=== PATIENT | female | born 1950 | race Caucasian/White ===

== ENCOUNTER 2020-09-30 13:30 | Outpatient (REF) | payer MEDICARE, SELFPAY ==
[2020-09-30 16:30] LABS: Hematocrit 29.2 % (37-47); Hemoglobin 7.6 g/dl (12.0-16.0); Mean Corpuscular Hemoglobin 16.9 pg (27.0-33.0); Red Blood Count 4.49 X10*6/uL (4.20-5.50); Red Cell Distribution Width 21.9 % (11.0-16.0)
[2020-09-30 16:31] LABS: PLT ABN DIST 1
[2020-09-30 16:49] LABS: Platelet Count 227 X10*3/uL (160-400); White Blood Count 7.2 X10*3/uL (4.8-10.8)
[2020-09-30 16:52] LABS: Alanine Aminotransferase 11 U/L (0-31); Albumin Level 4.5 g/dL (3.5-5.0); Alkaline Phosphatase 58 U/L (39-117); Anion Gap 12 (12-20); Aspartate Amino Transferase 18 U/L (5-31); Bilirubin Total 0.4 mg/dL (0.0-1.0); Blood Urea Nitrogen 19 mg/dL (9-16); Calcium 9.2 mg/dL (8.4-10.2); Carbon Dioxide 28 mmol/L (22-29); Chloride 106 mmol/L (96-108); Cholesterol 294 mg/dL; Estimated Glomerular Filt Rate > 60; Glucose Fasting 82 mg/dL (60-99); HDL Cholesterol 44 mg/dL; Iron 24 mcg/dL (30-160); LDL Cholesterol Calculated 191 mg/dl; Percent Iron Saturation 6 % (15-50); Potassium 3.9 mmol/L (3.3-5.1); Sodium 142 mmol/L (135-145); Total Iron Binding Capacity 436 mcg/dL (228-428); Total Protein 7.2 g/dL (6.5-8.0); Triglycerides 298 mg/dL; Unsaturated Iron Binding 412 ug/dL
[2020-09-30 17:15] LABS: Vitamin D 25-OH Total 12.4 ng/mL (>30)
== END 2020-09-30 13:31 | disposition home or self-care (01) ==
LOC: HO.HMGCLDS 13:30
PROVIDERS: PCP Internal Medicine; Visit Provider Internal Medicine
DX: E55.9 Vitamin D deficiency, unspecified (principal); I10 Essential (primary) hypertension; E78.5 Hyperlipidemia, unspecified; D50.9 Iron deficiency anemia, unspecified
CPT/HCPCS: 36415; 80053; 80061; 82306; 83540; 84443; 85027

== ENCOUNTER 2021-10-23 12:09 | Outpatient (REF) | payer MEDICARE, SELFPAY ==
[2021-10-23 13:58] LABS: MANUAL DIFF FLAG NO
[2021-10-23 14:24] LABS: Basophils Percent Auto 0.4 % (0-2); Eosinophils Absolute Auto 0.3 X10*3/uL (0.0-0.4); Eosinophils Percent Auto 3.3 % (0-4); Hematocrit 45.1 % (37.0-47.0); Hemoglobin 15.2 g/dl (12.0-16.0); Imm Gran Abs Auto 0.04 X10*3/uL (0.00-0.03); Imm Gran Pct Auto 0.5 % (0.0-0.4); Lymphocytes Absolute Auto 1.6 X10*3/uL (1.2-4.9); Lymphocytes Percent Auto 19.1 % (20-40); Mean Corpuscular HGB Conc 33.7 g/dl (31.0-35.0); Mean Corpuscular Hemoglobin 29.8 pg (27.0-33.0); Mean Corpuscular Volume 88.4 fL (80.0-98.0); Mean Platelet Volume 10.2 fL (9.4-12.3); Monocytes Absolute Auto 0.4 X10*3/uL (0.1-1.2); Monocytes Percent Auto 5.3 % (2-11); Neutrophils Absolute Auto 5.9 x10*3/uL (2.0-8.3); Neutrophils Percent Auto 71.4 % (45-73); Platelet Count 218 X10*3/uL (160-400); Red Cell Distribution Width 13.5 % (11.0-16.0); White Blood Count 8.2 X10*3/uL (4.8-10.8)
[2021-10-23 14:40] LABS: Alanine Aminotransferase 19 U/L (0-31); Albumin Level 4.6 g/dL (3.5-5.0); Alkaline Phosphatase 55 U/L (39-117); Anion Gap 12 (12-20); Aspartate Amino Transferase 25 U/L (5-31); Bilirubin Total 0.6 mg/dL (0.0-1.0); Blood Urea Nitrogen 15 mg/dL (9-16); Calcium 9.5 mg/dL (8.4-10.2); Carbon Dioxide 30 mmol/L (22-29); Chloride 104 mmol/L (96-108); Cholesterol 393 mg/dL; Estimated Glomerular Filt Rate > 60; Glucose Fasting 102 mg/dL (60-99); HDL Cholesterol 46 mg/dL; Iron 89 mcg/dL (30-160); LDL Cholesterol Calculated 307 mg/dl; Percent Iron Saturation 25 % (15-50); Sodium 142 mmol/L (135-145); Total Iron Binding Capacity 361 mcg/dL (228-428); Total Protein 7.4 g/dL (6.5-8.0); Triglycerides 200 mg/dL; Unsaturated Iron Binding 272 ug/dL
[2021-10-23 14:47] LABS: TSH reflex Free T4 2.18 uIU/mL (0.32-4.0)
== END 2021-10-23 12:10 | disposition home or self-care (01) ==
LOC: HO.HMGCLDS 12:09
PROVIDERS: Visit Provider Internal Medicine
DX: E55.9 Vitamin D deficiency, unspecified (principal); E78.5 Hyperlipidemia, unspecified; I10 Essential (primary) hypertension; D50.9 Iron deficiency anemia, unspecified
CPT/HCPCS: 36415; 80053; 80061; 83540; 84443; 85025

== ENCOUNTER 2022-05-04 11:20 | Outpatient (REF) | payer MEDICARE, SELFPAY ==
[2022-05-04 14:21] LABS: MANUAL DIFF FLAG NO
[2022-05-04 14:22] LABS: Basophils Percent Auto 0.3 % (0-2); Eosinophils Absolute Auto 0.2 X10*3/uL (0.0-0.4); Eosinophils Percent Auto 3.1 % (0-4); Hematocrit 43.1 % (37.0-47.0); Hemoglobin 14.7 g/dl (12.0-16.0); Imm Gran Abs Auto 0.03 X10*3/uL (0.00-0.03); Imm Gran Pct Auto 0.5 % (0.0-0.4); Lymphocytes Percent Auto 16.9 % (20-40); Mean Corpuscular HGB Conc 34.1 g/dl (31.0-35.0); Mean Corpuscular Hemoglobin 29.9 pg (27.0-33.0); Mean Corpuscular Volume 87.6 fL (80.0-98.0); Mean Platelet Volume 10.5 fL (9.4-12.3); Monocytes Absolute Auto 0.3 X10*3/uL (0.1-1.2); Monocytes Percent Auto 5.3 % (2-11); Neutrophils Absolute Auto 4.5 x10*3/uL (2.0-8.3); Neutrophils Percent Auto 73.9 % (45-73); Platelet Count 170 X10*3/uL (160-400); Red Blood Count 4.92 X10*6/uL (4.20-5.50); White Blood Count 6.1 X10*3/uL (4.8-10.8)
[2022-05-04 15:29] LABS: Alanine Aminotransferase 28 U/L (0-31); Albumin Level 4.4 g/dL (3.5-5.0); Alkaline Phosphatase 48 U/L (39-117); Anion Gap 15 (12-20); Aspartate Amino Transferase 56 U/L (5-31); Bilirubin Total 0.6 mg/dL (0.0-1.0); Blood Urea Nitrogen 20 mg/dL (9-16); Calcium 9.9 mg/dL (8.4-10.2); Carbon Dioxide 28 mmol/L (22-29); Chloride 102 mmol/L (96-108); Cholesterol 184 mg/dL; Estimated Glomerular Filt Rate > 60; Glucose Fasting 86 mg/dL (60-99); HDL Cholesterol 47 mg/dL; Iron 94 mcg/dL (30-160); LDL Cholesterol Calculated 108 mg/dl; Percent Iron Saturation 32 % (15-50); Potassium 4.3 mmol/L (3.3-5.1); Sodium 141 mmol/L (135-145); TSH reflex Free T4 2.12 uIU/mL (0.32-4.0); Total Iron Binding Capacity 298 mcg/dL (228-428); Total Protein 6.8 g/dL (6.5-8.0); Triglycerides 148 mg/dL; Unsaturated Iron Binding 204 ug/dL
== END 2022-05-04 11:21 | disposition home or self-care (01) ==
LOC: HO.HMGCLDS 11:20
PROVIDERS: PCP Internal Medicine; Visit Provider Internal Medicine
DX: D50.9 Iron deficiency anemia, unspecified (principal); I10 Essential (primary) hypertension; E78.5 Hyperlipidemia, unspecified
CPT/HCPCS: 36415; 80053; 80061; 83540; 84443; 85025

== ENCOUNTER 2023-12-20 09:27 | Outpatient (AMB) | payer MEDICARE, SELFPAY ==
[2023-12-20 09:37] VITALS: BP 124/78; PULSE 62; O2SAT 97; BMI 29.3
--- NOTE | 2023-12-20 09:39 | AM.OFFVISMDC ---
Intake Vital Signs 12/20/23 09:37 Height 5 ft 4 in Weight 171 lb BMI 29.3 BP 124/78 Blood Pressure Location Lt brachial Position Sitting Pulse 62 Pulse Source Pulse Oximeter Pulse Oximetry (%) 97 Oxygen Delivery Method Room Air Intake Visit Reasons: AWV Allergies Sulfa (Sulfonamide Antibiotics) Allergy (Unknown, Verified 12/20/23 09:39) Rash Medication List - Last Reconciled 12/20/23 by Jennifer Rodriguez MD atenolol-chlorthalidone 50-25 mg 1 tab PO DAILY clonazepam 0.5 mg PO DAILY cyclosporine 0.05% drps ophthalmic (eye) gabapentin 600 mg PO BID naproxen 500 mg PO BID PRN omeprazole 40 mg (2 x 20 mg) PO DAILY polysaccharide iron complex 150 mg PO DAILY rosuvastatin 20 mg PO BEDTIME sertraline 150 mg (1.5 x 100 mg) PO DAILY HPI AWV HPI Details Initiated the conversation about Advanced Directives. Advanced Directives help? patients prepare for current and future decisions about their medical treatment? and place of care. Discussed with patient that it is a process where a patients? current condition and prognosis are reviewed, their wishes for information? regarding their illness are elicited, and likely medical dilemmas are presented? and options discussed. The form can be amended as needed, reviewed yearly and? make changes as needed IPPE/AWV ? year old presents? for her ? Annual? Wellness Visit, initial visit.? Medical / Social History Reviewed? Past Medical History ?Yes? . ? [employer]? of Care / Care Team list updated ?Yes . ? Surgical/Hospitalization? History ?Yes . ? Current Medications? (including OTC and supplements) ?Yes . ? Family History ?Yes? . ? Tobacco? Control form ?Yes . ? AUDIT-C (Alcohol use) form? ?Yes . ? Illicit drug use in Social? History ?Yes . ? Current diagnosis of? depression? ?No ? Appropriate PHQ2/PHQ9? completed ?Yes . ? Data entered by ?Medical? Outboard Motor Assembler and reviewed by provider ? Fall Risk ? Fall? History? Have you had any falls with? injury in the past year? ?No . ? Have you had two or more? falls in the past year? ?No . ? Fall Risk Assessment: ?No? falls in the past year . ? HRA filled out by? the patient, reviewed by Provider and scanned. ? IPPE/AWV ? Balance? Romberg? ?Yes . ? Tandem? walk ?Yes . ? Walk and? Turn ?Yes . ? Rise from? sit to stand ?Yes . ?Vision? Corrective? lens ?Yes ? Vision? screen ? Up-to-date, has an appointment [] for vision? screening and glaucoma screening ?Hearing? Whisper? test ?pass .? Initiated the conversation about Advanced Directives. Advanced Directives help? patients prepare for current and future decisions about their medical treatment? and place of care. Discussed with patient that it is a process where a patients? current condition and prognosis are reviewed, their wishes for information? regarding their illness are elicited, and likely medical dilemmas are presented? and options discussed. The form can be amended as needed, reviewed yearly and? make changes as needed Written? Plan?Completed. See Patient? Documents. [facility] [place] Medical History (Updated 12/20/23 @ 10:19 by Jennifer Rodriguez MD) Vision loss of right eye Vitamin D deficiency Iron deficiency anemia Anxiety and depression Hyperlipidemia HTN (hypertension) Surgical History H/O colonoscopy History of esophagogastroduodenoscopy (EGD) Family History Father No problems noted. Mother No problems noted. Other Mental health disorder Substance use disorder Social History Housing: House Alcohol intake: current Alcohol intake frequency: does not drink Patient Tobacco Use Status: Never used Tobacco e-Cigarette/Vaping Use: Never Used Second Hand Smoke Exposure: No service: No Current occupational status: retired Cognitive needs: No Hearing needs: Yes Vision needs: Yes Questionnaire Medicare Wellness Checkup [age] What gender do you identify with?: female During the past 4 weeks, how much have you been bothered by emotional problems such as feeling anxious, depressed, irritable, sad or downhearted, and blue?: not at all During the past 4 weeks, has your physical & emotional health limited your social activities with family, friends, neighbors, or groups?: not at all During the past 4 weeks, how much bodily pain have you generally had?: moderate pain During the past 4 weeks, was someone available to help you if you needed & wanted help?: no, not at all During the past 4 weeks, what was the hardest physical activity you could do for at least 2 minutes?: very light Can you get to places out of walking distance without help? (For eg., can you travel alone on buses, taxis or drive your car?): Yes Can you go shopping for groceries or clothes without someone's help?: Yes Can you prepare your own meals?: Yes Can you do your housework without help?: Yes Because of any health problems, do you need the help of another person with your personal care needs such as eating, bathing, dressing or getting around the house?: No Can you handle your own money without help?: Yes During the past 4 weeks, how would you rate your health in general?: very good During the past 4 weeks how have things been going for you?: very well; could hardly better Are you having difficulties driving your car?: no Do you always fasten your seat belt when you are in a car?: yes, usually During past 4 weeks, have you been bothered by the following: never: Falling or dizzy when standing up, Sexual problems?, Trouble eating well?, Problems using the telephone? and Tiredness or fatigue? and sometimes: Teeth or denture problems? Have you fallen 2 or more times in the past year?: No Are you afraid of falling?: Yes Are you a smoker?: no During the past 4 weeks, how many drinks of wine, beer, or other alcoholic beverages did you have?: 1 drink or less per week Do you exercise for about 20 minutes 3 or more times a week?: yes, most of the time Have you been given information to help with the following?: no: Hazards in your house that might hurt you? and no: Keeping track of your medications? How often do you have trouble taking medicines the way you have been told to take them?: I always take medicine as prescribed How confident are you that you can control & manage most of your health problems?: very confident What is your race?: White Mini Mental State Exam (MMSE) Orientation What is the (year) (season) (date) (day) (month)?: year, season, date, day and month Where are we (state) (county) (town or city) (hospital) (floor)?: state, county, town or city, hospital/clinic and floor Registration Name of 3 unrelated objects clearly and slowly, then ask patient to repeat all 3 of them. (1st repeat determines score. Make sure they can repeat all three): object 1, object 2 and object 3 Attention & Calculation (CHOOSE ONE) Spell WORLD backwards (DLROW): 5 letters Recall Ask patient to repeat the 3 items from question #3.: object 1, object 2 and object 3 Language Show patient a wristwatch & ask what it is. Repeat for pencil.: watch and pencil Ask the patient to repeat the phrase 'No ifs, ands, or buts' after you.: correct Ask the patient to 'take a piece of paper with their right hand' 'fold paper in half' 'place paper on floor': take paper in right hand, fold paper in half and place paper on floor Print the sentence 'CLOSE YOUR EYES' on a piece. If patient actually closes eyes then score.: followed written direction Give patient a blank piece of paper & ask to write a sentence. Score if it contains a noun & verb.: sentence contains subject and verb Score Score: 29 Activity of Daily Living Bathing - sponge bath, tub bath or shower: receives no assistance (gets in/out by self, if usual bathing means Dressing - getting clothes from closets & drawers, including inner/outer garments & fasteners.: gets clothes & gets completely dressed without help Toileting - going to the 'toilet room' for urine/bowel elimination & cleaning self/arranging clothes: goes to toilet room, cleans self, arranges clothes without help Transfer: moves in & out of bed and chair without help (may use support object) Continence: controls urination/bowel movements completely by self Feeding: feeds self without help Total Score: 0 Information obtained from: patient Using telephone: independent Traveling: independent Shopping: independent Preparing meals: independent Housework: independent Taking medicine: independent Managing money: independent PHQ-9 Over the last 2 weeks, how often have you been bothered by any of the following problems? 1. Little interest or pleasure in doing things: not at all 2. Feeling down, depressed, or hopeless: not at all 3. Trouble falling or staying asleep, or sleeping too much: not at all 4. Feeling tired or having little energy: not at all 5. Poor appetite or overeating: not at all 6. Feeling bad about yourself - or that you are a failure or have let yourself or your family down: not at all 7. Trouble concentrating on things, such as reading the newspaper or watching television: not at all 8. Moving or speaking so slowly that other people could have noticed. Or the opposite - being so fidgety or restless that you have been moving around a lot more than usual: not at all 9. Thoughts that you would be better off or of hurting yourself in some way: not at all Total score: 0 Depression Screening Interpretation: Negative Depression Screening Done: Yes [id number] - PHQ-9 Billing: Yes Source: Developed by Drs. Db Cabello, Yasemin Gregory, Ulysses James and colleagues, with an educational david from [employer]. Review of Systems Const All systems reviewed & are unremarkable except as noted in HPI and below Eyes Reports no additional complaints ENT Reports no additional complaints Card Reports no additional complaints Resp Reports no additional complaints GI Reports no additional complaints Reports no additional complaints Musc Reports no additional complaints Physical Exam Vital Signs: Last Vital Signs Pulse 62 12/20/23 09:37 BP 124/78 12/20/23 09:37 Pulse Ox 97 12/20/23 09:37 Oxygen Delivery Method Room Air 12/20/23 09:37 BMI result Body Mass Index 29.3 Const General: no acute distress HEENT Head: Yes normal to inspection Eyes General: appearance normal, both eyes and all related structures Neck Neck: Yes no lymphadenopathy and Yes supple Resp Effort & Inspection: normal respiratory effort Auscultation: clear to auscultation bilaterally Cardio Rhythm: regular rhythm Heart sounds: S1 normal heart sound present and S2 normal heart sound present GI Inspection: Yes normal to inspection Palpation (GI): Soft to palpation Percussion: Yes normal to percussion Auscultation: normal bowel sounds Extrem General: Yes no clubbing, cyanosis or edema Assessment & Plan Assessment & Plan (1) HTN (hypertension): Comment: BP goal less than 130/80 Code(s): I10 - Essential (primary) hypertension Plan: cont meds (2) Hyperlipidemia: Comment: On Crestor Code(s): E78.5 - Hyperlipidemia, unspecified Plan: cont statin (3) Iron deficiency anemia: Comment: Chronic iron supplement, GI workup negative 2015 Code(s): D50.9 - Iron deficiency anemia, unspecified Plan: check iron (4) Vitamin D deficiency: Code(s): E55.9 - Vitamin D deficiency, unspecified Plan: check vit D (5) Anxiety and depression: Code(s): F41.9 - Anxiety disorder, unspecified; F32.9 - Major depressive disorder, single episode, unspecified Plan: cont meds (6) Annual physical exam: Code(s): Z00.00 - Encounter for general adult medical examination without abnormal findings Plan: Well-balanced diet regular physical activity discussed with the patient she will have a fasting blood work today. Patient declined mammogram and colonoscopy Orders: Orders Comprehensive Randolph. Panel Fast Today D50.9 - Iron deficiency anemia, unspecified, E55.9 - Vitamin D deficiency, unspecified, E78.5 - Hyperlipidemia, unspecified, I10 - Essential (primary) hypertension Complete Blood Count Auto Diff Today D50.9 - Iron deficiency anemia, unspecified, E55.9 - Vitamin D deficiency, unspecified, E78.5 - Hyperlipidemia, unspecified, I10 - Essential (primary) hypertension Lipid Panel Today D50.9 - Iron deficiency anemia, unspecified, E55.9 - Vitamin D deficiency, unspecified, E78.5 - Hyperlipidemia, unspecified, I10 - Essential (primary) hypertension TSH reflex Free T4 Today D50.9 - Iron deficiency anemia, unspecified, E55.9 - Vitamin D deficiency, unspecified, E78.5 - Hyperlipidemia, unspecified, I10 - Essential (primary) hypertension IRON PROFILE Today D50.9 - Iron deficiency anemia, unspecified, E55.9 - Vitamin D deficiency, unspecified, E78.5 - Hyperlipidemia, unspecified, I10 - Essential (primary) hypertension Vitamin D 25-OH Total Today D50.9 - Iron deficiency anemia, unspecified, E55.9 - Vitamin D deficiency, unspecified, E78.5 - Hyperlipidemia, unspecified, I10 - Essential (primary) hypertension Medications: Changed From atenolol-chlorthalidone 50-25 mg 1 tab PO DAILY 90 tabs 3RF To atenolol-chlorthalidone 50-25 mg 1/2 orally daily; 90 tabs 3RF Refilled gabapentin 600 mg PO BID 180 tabs 3RF rosuvastatin 20 mg PO BEDTIME 90 tabs 3RF Quality Reporting (2019) Depression/Bipolar (159/160/161/177) PHQ-9: Total score: 0 Coding Level of Care Code Medicare Subsequent (G0439) Diagnoses HTN (hypertension) I10 Hyperlipidemia E78.5 Iron deficiency anemia D50.9 Vitamin D deficiency E55.9 Anxiety and depression F41.9; F32.9 Annual physical exam Z00.00 CPT Codes Advance Care Planning - Time spent: 1-15 minutes, on File ([id number]) Advance Care Planning Advance Care Planning discussion: Exists, not on file Forms completed: Health Care Proxy Time spent: 1-15 minutes, on File Did not discuss due to Cultural/Spiritual beliefs: Yes
== END 2023-12-20 10:22 | disposition home or self-care (01) ==
PROVIDERS: PCP Internal Medicine; Visit Provider Internal Medicine
DX: Z00.00 Encounter for general adult medical examination without abnormal findings (principal); I10 Essential (primary) hypertension; E78.5 Hyperlipidemia, unspecified; D50.9 Iron deficiency anemia, unspecified; E55.9 Vitamin D deficiency, unspecified; F41.9 Anxiety disorder, unspecified; F32.9 Major depressive disorder, single episode, unspecified
CPT/HCPCS: 1123F; G0439

== ENCOUNTER 2023-12-20 10:14 | Outpatient (REF) | payer MEDICARE, SELFPAY ==
[2023-12-20 13:09] LABS: MANUAL DIFF FLAG NO
[2023-12-20 13:19] LABS: Basophils Percent Auto 0.3 % (0-2); Eosinophils Absolute Auto 0.2 X10*3/uL (0.0-0.4); Eosinophils Percent Auto 3.2 % (0-4); Hematocrit 44.7 % (37.0-47.0); Hemoglobin 14.8 g/dl (12.0-16.0); Imm Gran Abs Auto 0.03 X10*3/uL (0.00-0.03); Imm Gran Pct Auto 0.4 % (0.0-0.4); Lymphocytes Absolute Auto 1.3 X10*3/uL (1.2-4.9); Lymphocytes Percent Auto 18.9 % (20-40); Mean Corpuscular HGB Conc 33.1 g/dl (31.0-35.0); Mean Corpuscular Hemoglobin 29.6 pg (27.0-33.0); Mean Corpuscular Volume 89.4 fL (80.0-98.0); Mean Platelet Volume 10.2 fL (9.4-12.3); Monocytes Absolute Auto 0.4 X10*3/uL (0.1-1.2); Monocytes Percent Auto 5.4 % (2-11); Neutrophils Absolute Auto 4.9 x10*3/uL (2.0-8.3); Neutrophils Percent Auto 71.8 % (45-73); Platelet Count 152 X10*3/uL (160-400); Red Cell Distribution Width 14.3 % (11.0-16.0); White Blood Count 6.8 X10*3/uL (4.8-10.8)
[2023-12-20 13:30] LABS: Alanine Aminotransferase 21 U/L (0-31); Albumin Level 4.3 g/dL (3.5-5.0); Alkaline Phosphatase 46 U/L (39-117); Anion Gap 13 (12-20); Aspartate Amino Transferase 35 U/L (5-31); Bilirubin Total 0.5 mg/dL (0.0-1.0); Blood Urea Nitrogen 17 mg/dL (9-16); Carbon Dioxide 29 mmol/L (22-29); Chloride 105 mmol/L (96-108); Cholesterol 177 mg/dL (<200); Estimated Glomerular Filt Rate > 60; Glucose Fasting 95 mg/dL (60-99); HDL Cholesterol 50 mg/dL (>40); Iron 113 mcg/dL (30-160); LDL Cholesterol Calculated 101 mg/dL (<100); Percent Iron Saturation 42 % (15-50); Potassium 4.2 mmol/L (3.3-5.1); Sodium 143 mmol/L (135-145); Total Iron Binding Capacity 266 mcg/dL (228-428); Triglycerides 132 mg/dL (<150); Unsaturated Iron Binding 153 ug/dL
[2023-12-20 13:49] LABS: TSH reflex Free T4 2.61 uIU/mL (0.32-4.0); Vitamin D 25-OH Total 16.2 ng/mL (>30)
== END 2023-12-20 10:15 | disposition home or self-care (01) ==
LOC: HO.HMGCLDS 10:14
PROVIDERS: PCP Internal Medicine; Visit Provider Internal Medicine
DX: I10 Essential (primary) hypertension (principal); E78.5 Hyperlipidemia, unspecified; E55.9 Vitamin D deficiency, unspecified; D50.9 Iron deficiency anemia, unspecified
CPT/HCPCS: 36415; 80053; 80061; 82306; 83540; 84443; 85025

== ENCOUNTER 2025-02-05 10:34 | Outpatient (REF) | payer MEDICARE, SELFPAY ==
[2025-02-05 13:10] LABS: Appearance Urine Clear; Glucose Urine UA Negative (Negative); PH 5.5 (5.0-9.0); Specific Gravity - Urine 1.020 (1.005-1.025); UMIC TRIGGER UA YES
--- OUTSIDE RECORDS SUMMARY | 2025-02-05 13:17 | XMS_ITS | Clinical Summary ---
Author Organization [facility] Address [address] [place] [id number] Phone Care Team Providers Care Production Or Plant Engineer Name Role Phone Jennifer Rodriguez MD Primary Care Provider [phone] Allergies Active Allergy Reactions Criticality Noted Date Comments Acetaminophen Unknown 03/22/2011 Converted from Generic Allergy: Percocet 5/325 Mg ?HIVES Benzoin Unknown 03/22/2011 Morphine Unknown 03/22/2011 Converted from Generic Allergy: Morphine Sulfate NAUSEA Oxycodone Hcl Unknown 03/22/2011 Converted from Generic Allergy: Percocet 5/325 Mg ?HIVES Povidone Unknown 03/22/2011 Converted from Generic Allergy: Povidone Iodine Active Problems Problem Noted Date Diagnosed Date Knee pain 07/17/2014 Overview (03/18/2015): Knee pain Social History Tobacco Use Types Packs/Day Years Used Date Smoking Tobacco: Never Assessed Comments Unknown Sex and Gender Information Value Date Recorded Sex Assigned at Not on file Legal Sex Female 6:43 PM EST Gender Identity Not on file Sexual Orientation Not on file Plan of Treatment Not on file Medical Devices Not on file Insurance MEDICARE PART A & B [employer] MEDEX SUPPLEMENT MEDICARE PART A & B [employer] MEDEX SUPPLEMENT MEDICARE PART A & B [employer] MEDEX SUPPLEMENT MEDICARE PART A & B [employer] MEDEX SUPPLEMENT MEDICARE PART A & B Member Subscriber Plan / Payer (Ef fective 2012-Present) Name:Virgen Kidd Member ID:[id number] Relation to Subscriber:Self Name:Virgen Kidd Subscriber ID:[id number] Payer ID:[id number] Group ID:Not on file Type:Medicare Address: [employer] [facility].[address] [address] [facility] MEDEX SUPPLEMENT MEDICARE PART A & B [employer] MEDEX SUPPLEMENT MEDICARE PART A & B [employer] MEDEX SUPPLEMENT MEDICARE PART A & B [employer] CROSS MEDEX SUPPLEMENT MEDICARE PART A & B [employer] CROSS MEDEX SUPPLEMENT Care Teams Production Or Plant Engineer Relationship Specialty Start Date End Date Jennifer Rodriguez MD [address] [place] [address] PCP - General 05/04/13 Additional Source Comments The information contained in this document represents components of the legal health record. It is not the complete legal health record.[facility]
[2025-02-05 13:34] LABS: MANUAL DIFF FLAG NO
[2025-02-05 13:41] LABS: Hematocrit 44.7 % (37.0-47.0); Hemoglobin 14.7 g/dl (12.0-16.0); Imm Gran Abs Auto 0.03 X10*3/uL (0.00-0.03); Imm Gran Pct Auto 0.5 % (0.0-0.4); Lymphocytes Absolute Auto 0.8 X10*3/uL (1.2-4.9); Mean Corpuscular HGB Conc 32.9 g/dl (31.0-35.0); Mean Corpuscular Hemoglobin 29.4 pg (27.0-33.0); Mean Corpuscular Volume 89.4 fL (80.0-98.0); NRBC Abs Auto 0.000 X10*3/uL (0.0-0.012); NRBC Pct Auto 0.0 /100WBC (0.0-0.2); Platelet Count 127 X10*3/uL (160-400); Red Blood Count 5.00 X10*6/uL (4.20-5.50); White Blood Count 6.0 X10*3/uL (4.8-10.8)
[2025-02-05 14:11] LABS: Alanine Aminotransferase 23 U/L (0-31); Albumin Level 4.4 g/dL (3.5-5.0); Alkaline Phosphatase 49 U/L (39-117); Anion Gap 12 (12-20); Aspartate Amino Transferase 72 U/L (5-31); Blood Urea Nitrogen 14 mg/dL (9-16); Calcium 10.0 mg/dL (8.4-10.2); Carbon Dioxide 31 mmol/L (22-29); Chloride 107 mmol/L (96-108); Cholesterol 168 mg/dL (<200); Estimated Glomerular Filt Rate 56; HDL Cholesterol 47 mg/dL (>40); Potassium 4.4 mmol/L (3.3-5.1); Sodium 146 mmol/L (135-145); Total Protein 6.9 g/dL (6.5-8.0); Triglycerides 142 mg/dL (<150)
[2025-02-05 15:20] LABS: Free T4 (Free Thyroxine) 0.89 ng/dL (0.71-1.85)
== END 2025-02-05 10:35 | disposition home or self-care (01) ==
LOC: HO.HMGCLDS 10:34
PROVIDERS: PCP Internal Medicine; Visit Provider Internal Medicine
DX: I10 Essential (primary) hypertension (principal); E78.5 Hyperlipidemia, unspecified; E55.9 Vitamin D deficiency, unspecified
CPT/HCPCS: 36415; 80053; 80061; 81001; 82306; 84439; 84443; 85025

== ENCOUNTER 2025-02-15 10:52 | Outpatient (AMB) | payer MEDICARE, SELFPAY ==
[2025-02-15 10:58] VITALS: BP 122/66; PULSE 58; RESP 15; TEMP 36.6; O2SAT 97
--- NOTE | 2025-02-15 10:58 | A.OFFVIS_ITS ---
Intake Vital Signs 02/15/25 10:58 Height 5 ft 4 in Weight 175 lb BMI 30.0 BP 122/66 Blood Pressure Location Rt brachial Position Sitting Respiration 15 Pulse 58 Pulse Source Pulse Oximeter Temp 97.9 F Temp Source Oral Pulse Oximetry (%) 97 Oxygen Delivery Method Room Air Intake Visit Reasons: AWV G039 Intake Note: Pt is here today for PE. Allergies Sulfa (Sulfonamide Antibiotics) Allergy (Unknown, Verified 02/15/25 11:00) Rash Medication List - Last Reconciled 02/15/25 by Jennifer Rodriguez MD atenolol-chlorthalidone 50-25 mg 1/2 orally daily; cholecalciferol (vitamin D3) 50 mcg PO DAILY clonazepam 0.5 mg PO DAILY cyclosporine 0.05% drps ophthalmic (eye) gabapentin 600 mg PO BID naproxen 500 mg PO BID PRN omeprazole 40 mg (2 x 20 mg) PO DAILY polysaccharide iron complex 150 mg PO DAILY rosuvastatin 20 mg PO BEDTIME sertraline 150 mg (1.5 x 100 mg) PO DAILY HPI AWV G039 HPI Details Initiated the conversation about Advanced Directives. Advanced Directives help? patients prepare for current and future decisions about their medical treatment? and place of care. Discussed with patient that it is a process where a patients? current condition and prognosis are reviewed, their wishes for information? regarding their illness are elicited, and likely medical dilemmas are presented? and options discussed. The form can be amended as needed, reviewed yearly and? make changes as needed IPPE/AWV ? year old presents? for her ? Annual? Wellness Visit, initial visit.? Medical / Social History Reviewed? Past Medical History ?Yes? . ? [place]? of Care / Care Team list updated ?Yes . ? Surgical/Hospitalization? History ?Yes . ? Current Medications? (including OTC and supplements) ?Yes . ? Family History ?Yes? . ? Tobacco? Control form ?Yes . ? AUDIT-C (Alcohol use) form? ?Yes . ? Illicit drug use in Social? History ?Yes . ? Current diagnosis of? depression? ?No ? Appropriate PHQ2/PHQ9? completed ?Yes . ? Data entered by ?Medical? Box Machine Operator and reviewed by provider ? Fall Risk ? Fall? History? Have you had any falls with? injury in the past year? ?No . ? Have you had two or more? falls in the past year? ?No . ? Fall Risk Assessment: ?No? falls in the past year . ? HRA filled out by? the patient, reviewed by Provider and scanned. ? IPPE/AWV ? Balance? [place]? ?Yes . ? Tandem? walk ?Yes . ? Walk and? Turn ?Yes . ? Rise from? sit to stand ?Yes . ?Vision? Corrective? lens ?Yes ? Vision? screen ? Up-to-date, has an appointment [] for vision? screening and glaucoma screening ?Hearing? Whisper? test ?pass .? Initiated the conversation about Advanced Directives. Advanced Directives help? patients prepare for current and future decisions about their medical treatment? and place of care. Discussed with patient that it is a process where a patients? current condition and prognosis are reviewed, their wishes for information? regarding their illness are elicited, and likely medical dilemmas are presented? and options discussed. The form can be amended as needed, review ed yearly and? make changes as needed Written? Plan?Completed. See Patient? Documents. [facility]LY [facility], [facility] Medical History (Updated 02/15/25 @ 11:43 by Jennifer Rodriguez MD) Vision loss of right eye Vitamin D deficiency Iron deficiency anemia Anxiety and depression Hyperlipidemia HTN (hypertension) Surgical History H/O colonoscopy History of esophagogastroduodenoscopy (EGD) Family History Father No problems noted. Mother No problems noted. Other Mental health disorder Substance use disorder Social History Housing: House Alcohol intake: current Alcohol intake frequency: does not drink Patient Tobacco Use Status: Never used Tobacco e-Cigarette/Vaping Use: Never Used Second Hand Smoke Exposure: No service: No Current occupational status: retired Cognitive needs: No Hearing needs: Yes Vision needs: Yes Questionnaire Medicare Wellness Checkup [age] What gender do you identify with?: female During the past 4 weeks, how much have you been bothered by emotional problems such as feeling anxious, depressed, irritable, sad or downhearted, and blue?: not at all During the past 4 weeks, has your physical & emotional health limited your social activities with family, friends, neighbors, or groups?: not at all During the past 4 weeks, how much bodily pain have you generally had?: moderate pain During the past 4 weeks, was someone available to help you if you needed & wanted help?: no, not at all During the past 4 weeks, what was the hardest physical activity you could do for at least 2 minutes?: very light Can you get to places out of walking distance without help? (For eg., can you travel alone on buses, taxis or drive your car?): Yes Can you go shopping for groceries or clothes without someone's help?: Yes Can you prepare your own meals?: Yes Can you do your housework without help?: Yes Because of any health problems, do you need the help of another person with your personal care needs such as eating, bathing, dressing or getting around the house?: No Can you handle your own money without help?: Yes During the past 4 weeks, how would you rate your health in general?: very good During the past 4 weeks how have things been going for you?: very well; could hardly better Are you having difficulties driving your car?: no Do you always fasten your seat belt when you are in a car?: yes, usually During past 4 weeks, have you been bothered by the following: never: Falling or dizzy when standing up, Sexual problems?, Trouble eating well?, Problems using the telephone? and Tiredness or fatigue? and sometimes: Teeth or denture problems? Have you fallen 2 or more times in the past year?: No Are you afraid of falling?: Yes Are you a smoker?: no During the past 4 weeks, how many drinks of wine, beer, or other alcoholic beverages did you have?: 1 drink or less per week Do you exercise for about 20 minutes 3 or more times a week?: yes, most of the time Have you been given information to help with the following?: no: Hazards in your house that might hurt you? and no: Keeping track of your medications? How often do you have trouble taking medicines the way you have been told to take them?: I always take medicine as prescribed How confident are you that you can control & manage most of your health problems?: very confident What is your race?: White Mini Mental State Exam (MMSE) Orientation What is the (year) (season) (date) (day) (month)?: year, season, date, day and month Where are we (state) (county) (town or city) (hospital) (floor)?: state, county, town or city, hospital/clinic and floor Registration Name of 3 unrelated objects clearly and slowly, then ask patient to repeat all 3 of them. (1st repeat determines score. Make sure they can repeat all three): object 1, object 2 and object 3 Attention & Calculation (CHOOSE ONE) [employer] Kaizena backwards (DLROW): 5 letters Recall Ask patient to repeat the 3 items from question #3.: object 1, object 2 and object 3 Language Show patient a wristwatch & ask what it is. Repeat for pencil.: watch and pencil Ask the patient to repeat the phrase 'No ifs, ands, or buts' after you.: correct Ask the patient to 'take a piece of paper with their right hand' 'fold paper in half' 'place paper on floor': take paper in right hand, fold paper in half and place paper on floor Print the sentence 'CLOSE YOUR EYES' on a piece. If patient actually closes eyes then score.: followed written direction Give patient a blank piece of paper & ask to write a sentence. Score if it contains a noun & verb.: sentence contains subject and verb Score Score: 29 PHQ-9 Over the last 2 weeks, how often have you been bothered by any of the following problems? 1. Little interest or pleasure in doing things: not at all 2. Feeling down, depressed, or hopeless: not at all 3. Trouble falling or staying asleep, or sleeping too much: not at all 4. Feeling tired or having little energy: not at all 5. Poor appetite or overeating: not at all 6. Feeling bad about yourself - or that you are a failure or have let yourself or your family down: not at all 7. Trouble concentrating on things, such as reading the newspaper or watching television: not at all 8. Moving or speaking so slowly that other people could have noticed. Or the opposite - being so fidgety or restless that you have been moving around a lot more than usual: not at all 9. Thoughts that you would be better off or of hurting yourself in some way: not at all Total score: 0 Depression Screening Interpretation: Negative Depression Screening Done: Yes 59892 - PHQ-9 Billing: Yes Source: Developed by Drs. Db Cabello, Yasemin Gregory, Ulysses James and colleagues, with an educational david from [employer]. Review of Systems Const All systems reviewed & are unremarkable except as noted in HPI and below Eyes Reports no additional complaints ENT Reports no additional complaints Card Reports no additional complaints Resp Reports no additional complaints GI Reports no additional complaints Reports no additional complaints Physical Exam Vital Signs: Last Vital Signs Temp 97.9 F 02/15/25 10:58 Pulse 58 02/15/25 10:58 Resp 15 02/15/25 10:58 BP 122/66 02/15/25 10:58 Pulse Ox 97 02/15/25 10:58 Oxygen Delivery Method Room Air 02/15/25 10:58 BMI result Body Mass Index 30.0 Const General: no acute distress HEENT Head: Yes normal to inspection Eyes General: appearance normal, both eyes and all related structures Neck Neck: Yes no lymphadenopathy and Yes supple Resp Effort & Inspection: normal respiratory effort Auscultation: clear to auscultation bilaterally Cardio Rhythm: regular rhythm Heart sounds: S1 normal heart sound present and S2 normal heart sound present GI Inspection: Yes normal to inspection Palpation (GI): Soft to palpation Percussion: Yes normal to percussion Auscultation: normal bowel sounds Extrem General: Yes no clubbing, cyanosis or edema Assessment & Plan Assessment & Plan (1) Anxiety and depression: Code(s): F41.9 - Anxiety disorder, unspecified; F32.9 - Major depressive disorder, single episode, unspecified Plan: Continue current medications, patient was advised to avoid taking clonazepam daily try only as needed as it can cause habit-forming and tolerance (2) HTN (hypertension): Comment: BP goal less than 130/80 Code(s): I10 - Essential (primary) hypertension Plan: Continue current medications (3) Vitamin D deficiency: Code(s): E55.9 - Vitamin D deficiency, unspecified Plan: Continue vitamin-D supplement (4) Iron deficiency anemia: Comment: Chronic iron supplement, GI workup negative 2015 Code(s): D50.9 - Iron deficiency anemia, unspecified Plan: Continue iron supplement monitor CBC and iron count (5) Annual physical exam: Code(s): Z00.00 - Encounter for general adult medical examination without abnormal findings Plan: Well-balanced diet regular physical activity discussed with the patient. She declined mammogram colonoscopy and DEXA. Patient will return in 1 year Orders: Orders Comprehensive [place]. Panel Fast 1 Year D50.9 - Iron deficiency anemia, unspecified, E53.8 - Deficiency of other specified B group vitamins, E55.9 - Vitamin D deficiency, unspecified, E78.5 - Hyperlipidemia, unspecified, F32.9 - Major depressive disorder, single episode, unspecified, F41.9 - Anxiety disorder, unspecified, I10 - Essential (primary) hypertension IRON PROFILE 1 Year D50.9 - Iron deficiency anemia, unspecified, E53.8 - Deficiency of other specified B group vitamins, E55.9 - Vitamin D deficiency, unspecified, E78.5 - Hyperlipidemia, unspecified, F32.9 - Major depressive disorder, single episode, unspecified, F41.9 - Anxiety disorder, unspecified, I10 - Essential (primary) hypertension Vitamin D 25-OH Total 1 Year D50.9 - Iron deficiency anemia, unspecified, E53.8 - Deficiency of other specified B group vitamins, E55.9 - Vitamin D deficiency, unspecified, E78.5 - Hyperlipidemia, unspecified, F32.9 - Major depressive di sorder, single episode, unspecified, F41.9 - Anxiety disorder, unspecified, I10 - Essential (primary) hypertension Complete Blood Count Auto Diff 1 Year D50.9 - Iron deficiency anemia, unspecified, E53.8 - Deficiency of other specified B group vitamins, E55.9 - Vitamin D deficiency, unspecified, E78.5 - Hyperlipidemia, unspecified, F32.9 - Major depressive disorder, single episode, unspecified, F41.9 - Anxiety disorder, unspecified, I10 - Essential (primary) hypertension Lipid Panel 1 Year D50.9 - Iron deficiency anemia, unspecified, E53.8 - Deficiency of other specified B group vitamins, E55.9 - Vitamin D deficiency, unspecified, E78.5 - Hyperlipidemia, unspecified, F32.9 - Major depressive disorder, single episode, unspecified, F41.9 - Anxiety disorder, unspecified, I10 - Essential (primary) hypertension Vitamin B12 and Folate 1 Year D50.9 - Iron deficiency anemia, unspecified, E53.8 - Deficiency of other specified B group vitamins, E55.9 - Vitamin D deficiency, unspecified, E78.5 - Hyperlipidemia, unspecified, F32.9 - Major depressive disorder, single episode, unspecified, F41.9 - Anxiety disorder, unspecified, I10 - Essential (primary) hypertension Medications: Refilled atenolol-chlorthalidone 50-25 mg 1/2 orally daily; 90 tabs 3RF Quality Reporting (2019) Depression/Bipolar (159/160/161/177) PHQ-9: Total score: 0 Coding Level of Care Code Medicare Subsequent (G0439) Diagnoses Anxiety and depression F41.9; F32.9 HTN (hypertension) I10 Vitamin D deficiency E55.9 Iron deficiency anemia D50.9 Annual physical exam Z00.00 CPT Codes Advance Care Planning - Advance Care Planning discussion: On file, no changes ([id number]) Advance Care Planning - Time spent: 1-15 minutes, on File ([id number]) Additional Codes PHQ-9 - 46706 - PHQ-9 Billing: Yes ([id number]) Advance Care Planning Advance Care Planning discussion: On file, no changes Forms completed: Health Care Proxy Time spent: 1-15 minutes, on File
--- OUTSIDE RECORDS SUMMARY | 2025-02-15 13:02 | XMS_ITS | Clinical Summary ---
Author Organization [facility] Address [address] [place] [id number] Phone Care Team Providers Care Legal Analyst Name Role Phone Jennifer Rodriguez MD Primary Care Provider [phone] Allergies Active Allergy Reactions Criticality Noted Date [...] file Insurance MEDICARE PART A & B [employer] MEDEX SUPPLEMENT MEDICARE PART A & B Bplats MEDEX SUPPLEMENT MEDICARE PART A & B Bplats MEDEX SUPPLEMENT MEDICARE PART A & B Bplats MEDEX SUPPLEMENT MEDICARE PART A & B Member Subscriber Plan / Payer (Ef fective 2012-Present) Name:Virgen Kidd Member ID:[id number] Relation to Subscriber:Self Name:Virgen Kidd Subscriber ID:[id number] Payer ID:[id number] Group ID:Not on file Type:Medicare Address: [employer] [facility].[address] [address] [facility] MEDEX SUPPLEMENT MEDICARE PART A & B Bplats MEDEX SUPPLEMENT MEDICARE PART A & B Bplats MEDEX SUPPLEMENT MEDICARE PART A & B [employer]OSS MEDEX SUPPLEMENT MEDICARE PART A & B [employer] CROSS MEDEX SUPPLEMENT Care Teams Legal Analyst Relationship Specialty Start Date End Date Jennifer Rodriguez MD [address] [place] [address] PCP - General 05/04/13 Additional Source Comments The information contained in this document represents components of the legal health record. It is not the complete legal health record.[facility]
--- OUTSIDE RECORDS SUMMARY | 2025-02-15 13:02 | XMS_ITS | Data Portability ---
Author Organization [place] [facility], [facility] Address [address] [address] Care Team Providers Care Router Machine Operator Name Role Phone ALLI BROWN Primary Care Provider Assessment Encounter Date Assessment Date Assessment LastModified by Organization Details LastModified Time 02/16/2024 02/16/2024 73 year old female with black housefly in the left ear. Insect was removed without difficulty. There had been prior canal trauma but there is no active bleeding. She may discontinue the drops. She will follow up on an as needed basis. [email or web address] Not available 02/16/2024 13:35:35 Plan of Treatment Reminders Order Date Submit Date Provider Last Modified By Organization Details Last Modified Time Details Appointments POND Fitting Follow Up (30) 2024 09:00A M MEENAKSHI PABLO Not available Not available Not available Lab None recorded . Referral None recorded . Procedures None recorded . Surgeries None recorded . Imaging None recorded . Medication Orders None recorded . Patient TargetsNo targets recorded. Patient InstructionsNo instructions recorded. Reason for Referral None Reported. Results Created Date Observation Date Name Description Value Unit Range Abnormal Flag Note LastModifiedBy Organization Detail LastModifiedTime 08/11/19 25 audio gram No observ ation record ed. BARCODE Not Available 2024 14:24:36 Result Notes None recorded. Problems Name Problem SNOMED Code Status Onset Date Resolution Date Notes Provider Name and Address Organization Details Recorded Time Sensorine ural hearing loss of bilateral ears 554906946 Active 2018 Sensorine ural hearing loss, bilateral ; Note: Date Diagnosed : 06/12/2018 11:03 AM (H90.3) Not Available [facility] 02:33:26 Foreign body in left ear [id number] 535978 Active 2023 Lady tobar [place] [facility] 4 13:34:36 Problem Notes None recorded. Procedures Surgical History Date Name Laterality Status Provider Name and Address Organization Details Recorded Time 4 Removal of foreign body from ear canal completed Lady Dubois [place] [facility] 02/16/2024 13:31:18 procedure on knee completed Stacy Santiago [facility] 02/16/2024 12:46:27 Imaging Results None recorded. Procedure Notes None recorded. Medical Equipment None Reported. Allergies Allergen ID Allergen Name Allergen Category Reaction Reaction Severity Criticality Documentation Date Start Date Code Code System Note Provider Name and Address Organization Details Recorded Time 56419 Substance with sulfonami de structure and antibacte rial mechanism of action (substanc e) medicatio n other Not available Not available 08/23/2023 18729 [id number] SNOMED React ion: Unkno wn; Not Available [facility] 4 00:56:12 Medications Name Sig Start Date Stop Date Status Note LastModified by Organization Details LastModified Time amoxicillin 500 mg capsule TAKE 1 CAPSULE BY MOUTH EVERY 6 HOURS 02/15 completed Not Available Not Available Not Available gabapentin 600 mg tablet TAKE 1 TABLET BY MOUTH TWICE A DAY active Not Available Not Available No t Available polysacchar moraima iron complex 150 mg iron capsule TAKE 1 CAPSULE BY MOUTH EVERY DAY active Not Available Not Available No t Available clonazepam 0.5 mg tablet TAKE 1 TABLET BY MOUTH EVERY DAY active Not Available Not Available No t Available sertraline 100 mg tablet TAKE 1 AND 1/2 TABLETS DAILY active Not Available Not Available No t Available atenolol 50 mg-chlortha lidone 25 mg tablet TAKE 1 TABLET BY MOUTH EVERY DAY active Not Available Not Available No t Available omeprazole 20 mg capsule,del ayed release TAKE 2 CAPSULES BY MOUTH EVERY DAY active Not Available Not Available No t Available naproxen 500 mg tablet TAKE 1 TABLET BY MOUTH TWICE A DAY NEEDED FOR PAIN active Not Available Not Available No t Available neomycin-po lymyxin-hyd rocort 3.5 mg-10,000 unit/mL-1 % ear drops,susp PUT 3 DROPS INTO THE LEFT EAR 3 (THREE) TIMES A DAY FOR 7 DAYS FOR 7-10 DAYS. active Not Available Not Available No t Available Restasis 0.05 % eye drops in a dropperette INSTILL 1 DROP INTO BOTH EYES TWICE A DAY active Not Available Not Available No t Available rosuvastati n 20 mg tablet TAKE 1 TABLET BY MOUTH EVERYDAY AT BEDTIME active Not Available Not Available No t Available cholecalcif scot (vitamin D3) 50 mcg (2,000 unit) capsule TAKE 1 CAPSULE BY MOUTH EVERY DAY active Not Available Not Available No t Available Vitals None Recorded Social History None recorded. Functional Status None recorded. Mental Status None recorded. Family History Nothing Reported. Medical History Condition Response Hypertension Y High Cholesterol Y GERD/Reflux Y Gynecological HistoryNo gynecological history recorded. Obstetrics History GPAL:G 0 P 0 0 0 0 Past Encounters Encounter ID Performer Location Encounter Start Date Encounter Closed Date Diagnosis/Indication Diagnosis SNOMED-CT Code Diagnosis ICD10 Code Diagnosis IMO Codes Diagnosis Note [id number] LADY DUBOIS PA-C [facility] [address] [address] 02/16/2024 12:38:30 02/16/2024 13:29:48 Foreign body in left ear [id number] 5206301 T16.2XXA [id number] RODO AMAYA, AUD P[facility] [place] [address] [place] [id number] 05/11/2024 08:41:37 05/14/2024 10:21:32 Sensorineural hearing loss of bilateral ears 714097846 H90.3 [id number] RODO AMAYA, AUD POND - [place] [address] [address] 08/10/2024 08:52:12 08/14/2024 18:01:59 Sensorineural hearing loss of bilateral ears 836914590 H90.3 Health Concerns Section Related Observation LastModified by Organization Detai ls LastModified Time None Recorded Concern Status LastModified by Organization Details LastModified Time None Recorded Advance Directives Directive None Recorded Payers Insurance Date Sequence Insurance Name Policy Number Policy Case Covered Member ID Case Member ID Guarantor Name 08/09/2024 2 [place] [id number] Virgen Kidd [id number] Virgen Kidd 08/09/2024 1 [place] [facility] Virgen Kidd [id number] Virgen Kidd Notes Date Note Type Note Provider Name and Address Organization Details Recorded Time 02/16/2024 text/html ROS as noted in the HPI 73 year old female presents to the office reporting that a fly flew into her left ear on Tuesday. She went to urgent care where attempt was made to remove the fly and unfortunately they were unsuccessful and there was bleeding in the canal. She was prescribed Neomycin Polymyxin drops which she has been using since Tuesday. Lady tobar [place] [facility] 02/16/2024 13:36:45 05/11/2024 text/html Concerns: No concerns with her hearing aids today.Check/clean: GWO before and after cleaningAdjustments : none made today. No firmware updates needed.FU: 6 months MEENAKSHI PABLO [address], [address], [facility] - [facility] 05/11/2024 09:45:06 08/10/2024 text/html Audiogram completed today showed stable hearing. Concerns: No concerns with her hearing aids at this time.Check/clean: GWO before and after cleaning.Adjustment s: updated to new test.FU: 6 months. Her warranty is up in 05/2025. Needs new batteries at next follow up. MEENAKSHI PABLO 100 [facility],[address], [address], [facility] 08/10/2024 10:25:45 OBGyn Episode No OBEpisode recorded.
== END 2025-02-15 11:42 | disposition home or self-care (01) ==
LOC: HO.HMCC 10:53
PROVIDERS: PCP Internal Medicine; Visit Provider Internal Medicine
DX: Z00.00 Encounter for general adult medical examination without abnormal findings (principal); F41.9 Anxiety disorder, unspecified; F32.9 Major depressive disorder, single episode, unspecified; I10 Essential (primary) hypertension; E55.9 Vitamin D deficiency, unspecified; D50.9 Iron deficiency anemia, unspecified

== ENCOUNTER → 2025-02-15 10:52 | Outpatient (BNVA) | payer MEDICARE, SELFPAY | PROVIDERS: PCP Internal Medicine; Visit Provider Internal Medicine | DX: Z13.31 Encounter for screening for depression (principal) | CPT/HCPCS: 96127 ==